=== PATIENT | female | born 1935 | race Caucasian/White ===

== ENCOUNTER 2019-12-17 17:30 | Emergency (ER) | payer MEDICARE, OTHER, MEDICAID ==
--- NOTE | 2019-12-17 17:52 | EDM.PDOC ---
<Malcolm Aguilar - Last Filed: 12/17/19 19:09> ED HPI GENERAL MEDICAL PROBLEM - General Chief Complaint: General Stated Complaint: [facility] Time Seen by Provider: 12/17/19 17:44 - History of Present Illness INITIAL COMMENTS - FREE TEXT/NARRATIVE: 84-year-old female presents the emergency room with weakness and a fall. Patient was at her apartment doing some light weight work and she is felt weak and she fell. She does not recall how she fell or what triggered the fall she just woke up on the ground. The patient does not believe she was down very long. She called her daughter immediately who called 911. Patient does recall have any chest pain chest pressure. She denies any palpitations prior to this. The patient does state that she is just been overly tired and weak the last little bit. She cannot quite quantify how long as this is been going on she has absolutely no pain at this time. - Related Data Allergies Allergy/AdvReac Type Severity Reaction Status Date / Time amoxicillin [Amoxicillin] Allergy Hives Verified 12/17/19 17:47 Sulfa (Sulfonamide Allergy Other Verified 12/17/19 17:47 Antibiotics) Home Meds: Home Meds Clobetasol [Clobetasol Propionate 0.05%] 60 gm TP .PRN 04/09/14 [History] Levothyroxine [Sythroid] 100 mcg PO DAILY 04/09/14 [History] estradioL [Elestrin] 26 gm TD DAILY 04/09/14 [History] hydroCHLOROthiazide [Hydrochlorothiazide] 12.5 mg PO DAILY 04/09/14 [History] Letrozole 2.5 mg PO DAILY 12/17/19 [History] Losartan [Cozaar] 50 mg PO DAILY 12/17/19 [History] Oxybutynin 5 mg PO DAILY 12/17/19 [History] ED ROS GENERAL - Review of Systems Review Of Systems: See Below Constitutional: Reports: Weakness, Fatigue HEENT: Reports: No Symptoms Respiratory: Reports: No Symptoms Cardiovascular: Reports: No Symptoms Endocrine: Reports: No Symptoms GI/Abdominal: Reports: No Symptoms : Reports: No Symptoms Musculoskeletal: Reports: No Symptoms Skin: Reports: No Symptoms Neurological: Reports: Weakness. Denies: No Symptoms, Dizziness Psychiatric: Reports: No Symptoms Hematologic/Lymphatic: Reports: No Symptoms Immunologic: Reports: No Symptoms ED EXAM, GENERAL - Physical Exam Exam: See Below Exam Limited By: No Limitations General Appearance: Alert, No Apparent Distress Eye Exam: Bilateral Eye: Normal Inspection Ears: Normal External Exam, Normal Canal, Hearing Grossly Normal, Normal TMs Nose: Normal Inspection, Normal Mucosa, No Blood Throat/Mouth: Normal Inspection, Normal Lips, Normal Oropharynx, Normal Voice, No Airway Compromise, Other (She wears dentures better lowers are not in place). No: Normal Teeth Head: Atraumatic, Normocephalic Neck: Normal Inspection, Supple, Non-Tender, Full Range of Motion. No: Lymphadenopathy (L), Lymphadenopathy (R) Respiratory/Chest: No Respiratory Distress, Lungs Clear, Normal Breath Sounds Cardiovascular: Regular Rate, Rhythm, No Edema, Systolic Murmur (She has a 2/6 holosystolic murmur heard best along the left lower sternal border radiating aiding left lateral) GI/Abdominal: Normal Bowel Sounds, Soft, Other (She has some vague lower abdominal discomfort) Extremities: Normal Inspection, No Pedal Edema Neurological: Alert, Oriented, Normal Cognition Skin Exam: Warm, Dry, Intact Course - Re-Assessments/Exams Free Text/Narrative Re-Assessment/Exam: 12/17/19 19:09 Troponin is elevated at 0.167 3 times the upper end of normal. At this time is change of shift Dr. Osuna will assume care and disposition. Departure - Departure Disposition: DC/[facility]fer to Acute Hospital [facility] Clinical Impression: Syncope, Elevated troponin, Ventricular tachycardia, UTI (urinary tract infection) - Discharge Information Referrals: Bruon Dumas MD [Primary Care Provider] - Forms: ED Department Discharge <Abdelrahman Osuna - Last Filed: 12/17/19 20:56> ED HPI GENERAL MEDICAL PROBLEM - General Source of Information: Reports: Patient, Family (Gerand-daughter) History Limitations: Reports: No Limitations Past Medical History Cardiovascular History: Reports: High Cholesterol, Hypertension Musculoskeletal History: Reports: Arthritis Oncologic (Cancer) History: Reports: Breast (left, s/p mastectomy) - Past Surgical History HEENT Surgical History: Reports: Oral Surgery (dental extractions), Tonsillectomy Female Surgical History: Reports: Hysterectomy (complete) Oncologic Surgical History: Reports: Mastectomy (left) Social & Family History - Tobacco Use Smoking Status *Q: Never Smoker - Alcohol Use Alcohol Use History: No - Recreational Drug Use Recreational Drug Use: No - Living Situation & Occupation Living situation: Reports: , Alone Occupation: Retired EKG INTERPRETATION EKG Date: 12/17/19 Time: 18:03 Rhythm: NSR Rate (Beats/Min): 82 [place]: Normal P-Wave: Present QRS: Other (LVH) ST-T: Normal QT: Normal Comparison: NA - No Prior EKG Course - Vital Signs Last Recorded V/S: Last Vital Signs Temp 37.1 C 12/17/19 17:44 Pulse 72 12/17/19 20:35 Resp 16 12/17/19 17:44 BP 159/59 H 12/17/19 20:35 Pulse Ox 95 12/17/19 17:44 - Orders/Labs/Meds Orders: Active Orders 24 hr Category Date Time Status EKG Documentation Completion [RC] STAT Care 12/17/19 18:04 Active CULTURE URINE [RM] Stat Lab 12/17/19 18:45 Received Heparin Sodium/D5W [Heparin 25,000 Units in D5W 500 ML] Med 12/17/19 19:45 Active 25,000 units in 500 ml IV TITRATE Magnesium Sulfate/Water [Magnesium Sulfate in Water Med 12/17/19 19:39 Active Premix] 2 gm Premix Bag 1 bag IV ONETIME Medication Orders Magnesium Sulfate 2 gm/ Premix 50 mls @ 25 mls/hr IV ONETIME ONE Stop: 12/17/19 21:38 Last Admin: 12/17/19 19:58 Dose: 25 mls/hr Documented by: TIFFANIE Heparin Sodium/Dextrose (Heparin 25,000 Units In D5w 500 Ml) 25,000 units in 500 mls @ 12.5 mls/hr IV TITRATE TOREY; Protocol Last Admin: 12/17/19 20:02 Dose: 625 units/hr, 12.5 mls/hr Documented by: TIFFANIE Cosigned by: HANNAH Labs: Laboratory Tests 12/17/19 12/17/19 12/17/19 Range/Units 18:20 18:20 18:20 WBC 18.24 H (3.98-10.04) K/mm3 RBC 3.78 L (3.98-5.22) M/mm3 Hgb 11.6 (11.2-15.7) gm/dl Hct 33.6 L (34.1-44.9) % MCV 88.9 (79.4-94.8) fl MCH 30.7 (25.6-32.2) pg MCHC 34.5 (32.2-35.5) g/dl RDW Std Deviation 40.6 (36.4-46.3) fL Plt Count 228 (182-369) K/mm3 MPV 9.2 L (9.4-12.3) fl Neut % (Auto) 89.8 H (34.0-71.1) % Lymph % (Auto) 4.6 L (19.3-51.7) % [place] % (Auto) 5.3 (4.7-12.5) % Eos % (Auto) 0 L (0.7-5.8) Baso % (Auto) 0.1 (0.1-1.2) % Neut # (Auto) 16.38 H (1.56-6.13) K/mm3 Lymph # (Auto) 0.84 L (1.18-3.74) K/mm3 [place] # (Auto) 0.96 H (0.24-0.36) K/mm3 Eos # (Auto) 0.00 L (0.04-0.36) K/mm3 Baso # (Auto) 0.02 (0.01-0.08) K/mm3 Manual Slide Review Abnormal smear D-Dimer, Quantitative (0.19-0.50) mg/L Sodium 125 L (136-145) mEq/L Potassium 4.2 (3.5-5.1) mEq/L Chloride 91 L (98-107) mEq/L Carbon Dioxide 24 (21-32) mEq/L Anion Gap 14.2 (5-15) BUN 17 (7-18) mg/dL Creatinine 0.9 (0.55-1.02) mg/dL Est Cr Clr Drug Dosing 38.32 mL/min Estimated GFR (MDRD) 60 (>60) mL/min BUN/Creatinine Ratio 18.9 H (14-18) Glucose 126 H (83-115) mg/dL Calcium 8.5 (8.5-10.1) mg/dL Magnesium 1.7 L (1.8-2.4) mg/dl Total Bilirubin 0.6 (0.2-1.0) mg/dL AST 27 (15-37) U/L ALT 24 (14-59) U/L Alkaline Phosphatase 44 L (46-116) U/L Troponin I 0.167 H* (0.00-0.056) ng/mL Total Protein 6.6 (6.4-8.2) g/dl Albumin 3.6 (3.4-5.0) g/dl Globulin 3.0 gm/dL Albumin/Globulin Ratio 1.2 (1-2) TSH 3rd Generation 0.458 (0.358-3.74) uIU/mL Urine Color (Yellow) Urine Appearance (Clear) Urine pH (5.0-8.0) Ur Specific [place] (1.005-1.030) Urine Protein (Negative) Urine Glucose (UA) (Negative) Urine Ketones (Negative) Urine Occult Blood (Negative) Urine Nitrite (Negative) Urine Bilirubin (Negative) Urine Urobilinogen (0.2-1.0) Ur Leukocyte Esterase (Negative) Urine RBC (0-5) /hpf Urine WBC (0-5) /hpf Ur Squamous Epith Cells (0-5) /hpf Urine Bacteria (FEW) /hpf Urine Mucus (FEW) /hpf 12/17/19 12/17/19 Range/Units 18:20 18:45 WBC (3.98-10.04) K/mm3 RBC (3.98-5.22) M/mm3 Hgb (11.2-15.7) gm/dl Hct (34.1-44.9) % MCV (79.4-94.8) fl MCH (25.6-32.2) pg MCHC (32.2-35.5) g/dl RDW Std Deviation (36.4-46.3) fL Plt Count (182-369) K/mm3 MPV (9.4-12.3) fl Neut % (Auto) (34.0-71.1) % Lymph % (Auto) (19.3-51.7) % [place] % (Auto) (4.7-12.5) % Eos % (Auto) (0.7-5.8) Baso % (Auto) (0.1-1.2) % Neut # (Auto) (1.56-6.13) K/mm3 Lymph # (Auto) (1.18-3.74) K/mm3 [place] # (Auto) (0.24-0.36) K/mm3 Eos # (Auto) (0.04-0.36) K/mm3 Baso # (Auto) (0.01-0.08) K/mm3 Manual Slide Review D-Dimer, Quantitative 6.76 H (0.19-0.50) mg/L Sodium (136-145) mEq/L Potassium (3.5-5.1) mEq/L Chloride (98-107) mEq/L Carbon Dioxide (21-32) mEq/L Anion Gap (5-15) BUN (7-18) mg/dL Creatinine (0.55-1.02) mg/dL Est Cr Clr Drug Dosing mL/min Estimated GFR (MDRD) (>60) mL/min BUN/Creatinine Ratio (14-18) Glucose (83-115) mg/dL Calcium (8.5-10.1) mg/dL Magnesium (1.8-2.4) mg/dl Total Bilirubin (0.2-1.0) mg/dL AST (15-37) U/L ALT (14-59) U/L Alkaline Phosphatase (46-116) U/L Troponin I (0.00-0.056) ng/mL Total Protein (6.4-8.2) g/dl Albumin (3.4-5.0) g/dl Globulin gm/dL Albumin/Globulin Ratio (1-2) TSH 3rd Generation (0.358-3.74) uIU/mL Urine Color Light yellow (Yellow) Urine Appearance Cloudy H (Clear) Urine pH 7.0 (5.0-8.0) Ur Specific [place] 1.020 (1.005-1.030) Urine Protein Trace H (Negative) Urine Glucose (UA) Negative (Negative) Urine Ketones Negative (Negative) Urine Occult Blood 1+ H (Negative) Urine Nitrite Positive H (Negative) Urine Bilirubin Negative (Negative) Urine Urobilinogen 0.2 (0.2-1.0) Ur Leukocyte Esterase 3+ H (Negative) Urine RBC 5-10 H (0-5) /hpf Urine WBC 40-50 H (0-5) /hpf Ur Squamous Epith Cells 0-5 (0-5) /hpf Urine Bacteria Many H (FEW) /hpf Urine Mucus Not seen (FEW) /hpf Meds: Medications Generic Name Dose Route Start Last Admin Trade Name Freq PRN Reason Stop Dose Admin Magnesium Sulfate 2 gm/ Premix 50 mls @ 25 mls/hr 12/17/19 19:39 12/17/19 19:58 IV 12/17/19 21:38 25 mls/hr ONETIME ONE Administration Heparin Sodium/Dextrose 25,000 units in 500 mls @ 12.5 mls/hr 12/17/19 19:45 12/17/19 20:02 Heparin 25,000 Units In D5w 500 Ml IV 625 units/hr TITRATE TOREY 12.5 mls/hr Administration Protocol 625 UNITS/HR Discontinued Medications Generic Name Dose Route Start Last Admin Trade Name Freq PRN Reason Stop Dose Admin Aspirin 324 mg 12/17/19 19:42 12/17/19 19:55 Aspirin PO 12/17/19 19:43 324 mg ONETIME STA Administration Heparin Sodium (Porcine) 3,130 units 12/17/19 19:42 12/17/19 19:56 Heparin Sodium IVPUSH 12/17/19 19:43 3,130 units .BOLUS ONE Administration Metoprolol Tartrate 5 mg 12/17/19 19:45 12/17/19 20:05 Lopressor IVPUSH 12/17/19 19:46 5 mg ONETIME ONE Administration Metoprolol Tartrate 5 mg 12/17/19 20:27 12/17/19 20:35 Lopressor IVPUSH 12/17/19 20:28 5 mg ONETIME ONE Administration Nitrofurantoin Macrocrystals 100 mg 12/17/19 19:27 12/17/19 19:37 Macrobid PO 12/17/19 19:28 100 mg ONETIME STA Administration Oral Electrolytes 1 each 12/17/19 20:00 12/17/19 20:19 Thermotabs PO 12/17/19 20:01 1 each ONETIME STA Administration - Re-Assessments/Exams Free Text/Narrative Re-Assessment/Exam: 12/17/19 19:[address] Aguilar. I have interviewed and examined the patient. Portable chest radiograph reviewed. The cardiac silhouette is within normal limits. No pulmonary vascular congestion. No pleural effusions. No focal infiltrate. No pneumothorax. There is hyperinflation and bilateral diaphragmatic flattening, consistent with emphysema. Formal read per the Radiologist pending. CT of the head without contrast is read by Dr. Salamanca as: 1. Senescent change as described above. 2. Nothing acute is appreciated on noncontrast head CT exam. The patient's CBC is remarkable for a WBC count elevated at 18.24, but with rare bands. Her Hct is mildly depressed at 33.6, but with a Hgb normal at 11.6, with the remainder of her CBC being unremarkable. Her CMP is remarkable for a sodium depressed at 125, with a chloride of 91. Her blood glucose is mildly elevated at 126, with the remainder of her CMP being unremarkable. Her magnesium level is slightly depressed at 1.7. Her troponin is elevated at 0.167. Her TSH is within normal limits at 0.458. Her urinalysis is remarkable for cloudy appearance, 1+ occult blood with 5-10 R BCs, 3+ leukocyte esterase with 40-50 WBCs, nitrite positive with many bacteria, and 0-5 squamous epithelial cells. Based on the above, the patient appears to have a urinary tract infection. A urine culture has been ordered, and I will start the patient on oral nitrofurantoin. Additionally, while the patient's ECG shows no dysrhythmias, I have been notified of a 6-beat run of ventricular tachycardia caught on the patient's proofer prepress. Combined with the patient's elevated troponin, I suspect that her syncopal episode may be cardiac in etiology. I will order a 2 g Mg- rider, 324 mg of aspirin, 5 mg of IV Lopressor, and a heparin bolus/drip. The patient will need to be transferred to [place]. 12/17/19 19:52 Test results and my plan for transfer to [place] discussed with the patient and her granddaughter. The patient prefers [facility]. 12/17/19 19:55 Case discussed with Ministerio at [facility] at 19:54. She needs to check with her residential case manager to see about bed availability, then will call us back. 12/17/19 19:59 I have pushed the portable chest x-ray and CT/head images to [facility]. 12/17/19 20:01 To treat the patient's hyponatremia, I have ordered a single Thermotab salt supplement. 12/17/19 20:21 Called back by Ministerio at [facility] at 20:03. Case then discussed with Dr. Hall, Hospitalist at [facility], at 20:1 7. He suggested that we check a D-dimer, but accepted the patient for transfer to their facility. The patient will be transported by ground ambulance. I have added a D-dimer, with the plan to notify Dr. Hall if it is elevated, but in the meantime, the patient will be transferred. As above, she is already on a heparin drip. 12/17/19 20:27 I have ordered a second Lopressor 5 mg IVP. 12/17/19 20:54 Notified that the patient's D-dimer is significantly elevated at 6.76. 12/17/19 20:55 Notified Ministerio at [facility] of the elevated D-dimer, at 20:55. She will notify Dr. Hall. Departure - Departure Time of Disposition: 20:24 Condition: Good Sepsis Event Note (ED) - Focused Exam Vital Signs: Vital Signs Temp Pulse Pulse Resp BP BP Pulse Ox 12/17/19 20:35 72 159/59 H 12/17/19 20:05 85 145/50 H 12/17/19 17:44 37.1 C 86 16 151/51 H 95 - My Orders Last 24 Hours: My Active Orders 12/17/19 19:39 Magnesium Sulfate/Water [Magnesium Sulfate in Water Premix] 2 gm Premix Bag 1 bag IV ONETIME 12/17/19 19:45 Heparin Sodium/D5W [Heparin 25,000 Units in D5W 500 ML] 25,000 units in 500 ml IV TITRATE - Assessment/Plan Last 24 Hours: My Active Orders 12/17/19 19:39 Magnesium Sulfate/Water [Magnesium Sulfate in Water Premix] 2 gm Premix Bag 1 bag IV ONETIME 12/17/19 19:45 Heparin Sodium/D5W [Heparin 25,000 Units in D5W 500 ML] 25,000 units in 500 ml IV TITRATE
--- NOTE | 2019-12-17 18:56 | CT ---
Head CT Technique: Multiple axial sections through the brain were obtained. Intravenous contrast was not utilized. Comparison: No prior intracranial imaging is available. Findings: Ventricles along with basal cisterns and sulci over the convexities are mildly prominent. Diminished density is noted within portions of the periventricular and subcortical white matter compatible with small vessel ischemic demyelination change. Several old lacunar infarcts are noted within the basal ganglia. No evidence of intracranial hemorrhage. No midline shift or mass-effect is seen. Bone window settings were reviewed. No acute calvarial finding is seen. Visualized paranasal sinuses and mastoid sinuses show nothing acute. Mild atherosclerotic calcification is seen within the vertebral vessels and carotid siphon. Impression: 1. Senescent change as described above. 2. Nothing acute is appreciated on noncontrast head CT exam. Diagnostic code #2 This report was dictated in MDT
[2019-12-17] MEDS ORDERED: Nitrofurantoin Monohydrate/Macrocrystalline 100 MG Cap PO STA (19:27)
--- NOTE | 2019-12-17 19:35 | CR ---
Chest: Portable view of the chest was obtained. Comparison: No prior chest imaging is available. Heart size and mediastinum are within normal limits for portable technique. Axillary lymph node dissection is noted as noted on the left side. Lungs show no acute parenchymal change. Mild scoliosis is noted within the spine. No acute osseous finding is appreciated. Impression: 1. Findings as noted above. 2. Nothing acute is appreciated on portable chest x-ray. Diagnostic code #2 This report was dictated in MDT
[2019-12-17] MEDS ORDERED: Magnesium Sulfate/Water 2 GM in Premix Bag 1 BAG IV ONE (19:39)
[2019-12-17] MEDS ORDERED: Aspirin 81 MG Tab.Chew PO STA (19:42)
[2019-12-17] MEDS ORDERED: Heparin Sodium 5,000 Units/ML Vial IVPUSH ONE (19:42)
[2019-12-17] MEDS ORDERED: Metoprolol Tartrate 5 MG/5 ML SDV IVPUSH ONE ×2 (19:45→20:27)
[2019-12-17] MEDS ORDERED: Heparin Sodium/D5W 25,000 UNITS/500 ML BAG IV SCH (19:45)
[2019-12-17] MEDS ORDERED: Sodium Chloride/Potassium Chloride Tab PO STA (20:00)
== END 2019-12-17 21:00 ==
LOC: JD.ED 17:30
DX: R55 Syncope and collapse (principal); R79.89 Other specified abnormal findings of blood chemistry; N39.0 Urinary tract infection, site not specified; I47.2 Ventricular tachycardia; I10 Essential (primary) hypertension; Z88.1 Allergy status to other antibiotic agents; Z88.2 Allergy status to sulfonamides; Z79.899 Other long term (current) drug therapy; Z90.710 Acquired absence of both cervix and uterus
CPT/HCPCS: 36415; 70450; 71045; 80053; 81001; 83735; 84443; 84484; 85025; 85379; 87086; 87088; 87186; 93005; 96365; 96368; 96375; 96376; 99285; A9270; J1644; J3475; J3490

== ENCOUNTER 2020-03-12 15:55 | Emergency (ER) | payer MEDICARE, OTHER, MEDICAID ==
--- NOTE | 2020-03-12 16:24 | EDM.PDOC ---
ED HPI GENERAL MEDICAL PROBLEM - General Chief Complaint: General Stated Complaint: [facility] Time Seen by Provider: 03/12/20 16:04 Source of Information: Reports: Patient History Limitations: Reports: No Limitations - History of Present Illness INITIAL COMMENTS - FREE TEXT/NARRATIVE: Patient is an 84 year old female presenting to the ER with for evaulation after sustaining a fall at home. Patient states that she was standing in the kitchen and "her cane didn't work right". She states that she fell backward, landing on her back. She does not think that she hit her head and denies LOC. She has no pain to any part of her body. She states that she initially stood with the assistance of EMS, she felt dizzy but she no longer feels dizzy. She states that she feels tired. Denies headache, dizziness, vision changes, or pain. She denies being on blood thinners. - Related Data Allergies Allergy/AdvReac Type Severity Reaction Status Date / Time amoxicillin [Amoxicillin] Allergy Hives Verified 03/12/20 16:03 Sulfa (Sulfonamide Allergy Other Verified 03/12/20 16:03 Antibiotics) Home Meds: Home Meds Levothyroxine [Sythroid] 100 mcg PO DAILY 04/09/14 [History] Letrozole 2.5 mg PO DAILY 12/17/19 [History] Losartan [Cozaar] 50 mg PO DAILY 12/17/19 [History] Oxybutynin 5 mg PO BID 12/17/19 [History] atorvaSTATin [Lipitor] 20 mg PO DAILY 03/12/20 [History] Past Medical History Cardiovascular History: Reports: High Cholesterol, Hypertension Musculoskeletal History: Reports: Arthritis Oncologic (Cancer) History: Reports: Breast - Past Surgical History HEENT Surgical History: Reports: Oral Surgery, Tonsillectomy Female Surgical History: Reports: Hysterectomy Oncologic Surgical History: Reports: Mastectomy Social & Family History - Tobacco Use Smoking Status *Q: Never Smoker Second Hand Smoke Exposure: No - Caffeine Use Caffeine Use: Reports: None - Recreational Drug Use Recreational Drug Use: No - Living Situation & Occupation Living situation: Reports: , Alone Occupation: Retired ED ROS GENERAL - Review of Systems Review Of Systems: See Below Constitutional: Reports: Fatigue. Denies: Fever, Chills, Weakness HEENT: Reports: No Symptoms. Denies: Vertigo, Vision Change Respiratory: Reports: No Symptoms. Denies: Shortness of Breath, Cough Cardiovascular: Reports: No Symptoms. Denies: Chest Pain, Dyspnea on Exertion, Palpitations, Syncope Endocrine: Reports: No Symptoms GI/Abdominal: Reports: No Symptoms. Denies: Abdominal Pain, Diarrhea, Nausea, Vomiting : Reports: No Symptoms. Denies: Dysuria, Flank Pain, Frequency Musculoskeletal: Reports: No Symptoms. Denies: Neck Pain, Back Pain, Joint Pain Skin: Reports: No Symptoms. Denies: Bruising Neurological: Reports: Dizziness (transient upon standing after the fall). Denies: Confusion, Headache, Paresthesia, Syncope, Trouble Speaking, Change in Speech Psychiatric: Reports: No Symptoms Hematologic/Lymphatic: Reports: No Symptoms Immunologic: Reports: No Symptoms ED EXAM, GENERAL - Physical Exam Exam: See Below Exam Limited By: No Limitations General Appearance: Alert, WD/WN, No Apparent Distress Eye Exam: Bilateral Eye: PERRL Head: Atraumatic, Normocephalic Neck: Normal Inspection, Supple, Non-Tender, Full Range of Motion. No: Tender Lateral, Tender Midline Respiratory/Chest: No Respiratory Distress, Lungs Clear, Normal Breath Sounds, No Accessory Muscle Use, Chest Non-Tender Cardiovascular: Normal Peripheral Pulses, Regular Rate, Rhythm, No Edema, No Gallop, No JVD, No Murmur, No Rub GI/Abdominal: Normal Bowel Sounds, Soft, Non-Tender, No Organomegaly, No Distention, No Abnormal Bruit, No Mass Back Exam: Normal Inspection, Full Range of Motion. No: Paraspinal Tenderness, Vertebral Tenderness Neurological: Alert, Oriented, CN II-XII Intact, Normal Cognition, Normal Gait, Normal Reflexes, No Motor/Sensory Deficits Psychiatric: Normal Affect, Normal Mood Skin Exam: Warm, Dry, Intact, Normal Color, No Rash EKG INTERPRETATION EKG Date: 03/12/20 Time: 16:30 Rhythm: NSR Rate (Beats/Min): 80 [place]: Normal P-Wave: Present QRS: Normal ST-T: Normal QT: Normal EKG Interpretation Comments: Sinus rhythm at 80 bpm Severe left ventricular hypertrophy pattern Peaked, symmetrical T waves-consider hyperkalemia Consider left atrial hypertrophy EKG interpreted by Dr. Virginia HUGHES. Course - Vital Signs Last Recorded V/S: Last Vital Signs Temp 98 F 03/12/20 16:00 Pulse 80 03/12/20 18:10 Resp 14 03/12/20 18:10 BP 161/87 H 03/12/20 18:10 Pulse Ox 96 03/12/20 18:10 Orthostatic Blood Pressure [ 191/77 Sitting] Orthostatic Blood Pressure [ 187/71 Supine] - Orders/Labs/Meds Orders: Active Orders 24 hr Category Date Time Status EKG Documentation Completion [RC] STAT Care 03/12/20 16:17 Active Insert Santana Catheter [Insert Urinary Catheter] [OM.PC] Care 03/12/20 17:30 Ordered Q24H Orthostatic Vital Signs [RC] ASDIRECTED Care 03/12/20 16:18 Active Urinary Catheter Assessment [RC] ASDIRECTED Care 03/12/20 17:26 Active Chest 2V [CR] Stat Exams 03/12/20 16:17 Taken Head wo Cont [CT] Stat Exams 03/12/20 16:16 Taken Labs: Laboratory Tests 03/12/20 03/12/20 03/12/20 Range/Units 16:33 16:33 17:12 WBC 9.18 (3.98-10.04) K/mm3 RBC 3.83 L (3.98-5.22) M/mm3 Hgb 11.9 (11.2-15.7) gm/dl Hct 35.6 (34.1-44.9) % MCV 93.0 D (79.4-94.8) fl MCH 31.1 (25.6-32.2) pg MCHC 33.4 (32.2-35.5) g/dl RDW Std Deviation 41.9 (36.4-46.3) fL Plt Count 187 (182-369) K/mm3 MPV 10.0 (9.4-12.3) fl Neut % (Auto) 84.6 H (34.0-71.1) % Lymph % (Auto) 8.3 L (19.3-51.7) % [place] % (Auto) 6.4 (4.7-12.5) % Eos % (Auto) 0.5 L (0.7-5.8) Baso % (Auto) 0.1 (0.1-1.2) % Neut # (Auto) 7.76 H (1.56-6.13) K/mm3 Lymph # (Auto) 0.76 L (1.18-3.74) K/mm3 [place] # (Auto) 0.59 H (0.24-0.36) K/mm3 Eos # (Auto) 0.05 (0.04-0.36) K/mm3 Baso # (Auto) 0.01 (0.01-0.08) K/mm3 Manual Slide Review Abnormal smear Sodium 130 L (136-145) mEq/L Potassium 4.7 (3.5-5.1) mEq/L Chloride 96 L (98-107) mEq/L Carbon Dioxide 27 (21-32) mEq/L Anion Gap 11.7 (5-15) BUN 19 H (7-18) mg/dL Creatinine 1.0 (0.55-1.02) mg/dL Est Cr Clr Drug Dosing 29.99 mL/min Estimated GFR (MDRD) 53 (>60) mL/min BUN/Creatinine Ratio 19.0 H (14-18) Glucose 114 (83-115) mg/dL Calcium 8.8 (8.5-10.1) mg/dL Total Bilirubin 0.5 (0.2-1.0) mg/dL AST 24 (15-37) U/L ALT 20 (14-59) U/L Alkaline Phosphatase 40 L (46-116) U/L Troponin I 0.028 (0.00-0.056) ng/mL C-Reactive Protein 0.3 (<1.0) mg/dL Total Protein 6.7 (6.4-8.2) g/dl Albumin 3.7 (3.4-5.0) g/dl Globulin 3.0 gm/dL Albumin/Globulin Ratio 1.2 (1-2) Urine Color Yellow (Yellow) Urine Appearance Clear (Clear) Urine pH 7.5 (5.0-8.0) Ur Specific [place] 1.020 (1.005-1.030) Urine Protein Negative (Negative) Urine Glucose (UA) Negative (Negative) Urine Ketones 1+ H (Negative) Urine Occult Blood Trace-intact H (Negative) Urine Nitrite Negative (Negative) Urine Bilirubin Negative (Negative) Urine Urobilinogen 0.2 (0.2-1.0) Ur Leukocyte Esterase Negative (Negative) Urine RBC 0-5 (0-5) /hpf Urine WBC 0-5 (0-5) /hpf Ur Squamous Epith Cells 0-5 (0-5) /hpf Urine Bacteria Few (FEW) /hpf Urine Mucus Not seen (FEW) /hpf - Re-Assessments/Exams Free Text/Narrative Re-Assessment/Exam: Patient is an 84-year-old female presenting to the emergency department via [facility] for evaluation after falling at home. She states she was standing in her kitchen and her "cane did not work". She describes falling backward, but denies hitting her head. She denies loss of consciousness. She states when she was initially assisted to a standing position by EMS, she felt dizzy, however that has since passed. She denies feeling dizzy at this time. Has no headache or vision changes. Her exam was grossly unremarkable. Grasps are equal bilaterally. Leg strength equal bilaterally. She denies back pain and has no vertebral tenderness upon palpation of the spine or neck. She has full range of motion with no tenderness to her bilateral hips. There is no palpable hematomas or areas of tenderness to the skull. Lung sounds are clear. I have ordered a CBC, CMP, CRP, troponin, urinalysis, orthostatic blood pressures, head CT, and a two-view chest x-ray. 03/12/20 17:45 Hematology was significant for sodium low at 130, chloride low at 96, BUN 19. Troponin was negative. Urinalysis was negative for infection. Head CT showed no acute intracranial abnormalities. Chest x-ray showed no acute abnormalities. Patient states that she is feeling well, but is . We will have the nurses have her get up and walk and see how she does with the intent of discharging home. 03/12/20 17:51 Patient was able to ambulate without difficulty of the use of a front wheel walker. Patient states that she feels like she is doing well. She does have a cane and a walker at home that she may use as needed. I have ordered a state send out coronavirus test. We will discharge her home. Discharge instructions as documented. 03/12/20 18:16 Updated pts [id number] Adali. She will come to pick the patient up. Discussed than she should decrease the amount of plain water she is drinking and increase fluids with electrolytes. Discussed this with the patient as well. Both verbalizes understanding. Departure - Departure Time of Disposition: 18:03 Disposition: Home, Self-Care 01 Condition: Good Clinical Impression: Hyponatremia Fall Qualifiers: Encounter type: initial encounter Qualified Code(s): W19.XXXA - Unspecified fall, initial encounter - Discharge Information *PRESCRIPTION DRUG MONITORING PROGRAM REVIEWED*: No *COPY OF PRESCRIPTION DRUG MONITORING REPORT IN PATIENT RYAN: No Referrals: Bruno Dumas MD [Primary Care Provider] - Forms: ED Department Discharge Additional Instructions: You were seen in the emergency department today for evaluation after a fall at home. Your work-up included blood work, urinalysis, and EKG of your heart, chest x-ray, and a CT scan of your head. Overall your work-up was found to be normal, with the exception of your sodium being mildly low. Recommend that you increase your intake of electrolytes including Gatorade or Powerade, and decrease your intake of straight water. Use your walker or cane at home as needed for assistance walking. A coronavirus test has been completed today. You will be notified when these results are available. If you should experience any new or worsening symptoms of concern, please not hesitate to return to the emergency department. Sepsis Event Note (ED) - Evaluation Sepsis Screening Result: No Definite Risk - Focused Exam Vital Signs: Vital Signs Temp Pulse Resp BP Pulse Ox 03/12/20 18:10 80 14 161/87 H 96 03/12/20 17:30 84 16 168/59 H 95 03/12/20 16:00 98 F 88 16 184/70 H 94 L - My Orders Last 24 Hours: My Active Orders 03/12/20 16:16 Head wo Cont [CT] Stat 03/12/20 16:17 EKG Documentation Completion [RC] STAT Chest 2V [CR] Stat 03/12/20 16:18 Orthostatic Vital Signs [RC] ASDIRECTED 03/12/20 17:26 Urinary Catheter Assessment [RC] ASDIRECTED 03/12/20 17:30 Insert Santana Catheter [Insert Urinary Catheter] [OM.PC] Q24H - Assessment/Plan Last 24 Hours: My Active Orders 03/12/20 16:16 Head wo Cont [CT] Stat 03/12/20 16:17 EKG Documentation Completion [RC] STAT Chest 2V [CR] Stat 03/12/20 16:18 Orthostatic Vital Signs [RC] ASDIRECTED 03/12/20 17:26 Urinary Catheter Assessment [RC] ASDIRECTED 03/12/20 17:30 Insert Santana Catheter [Insert Urinary Catheter] [OM.PC] Q24H
--- NOTE | 2020-03-13 11:25 | CR ---
Chest: 2 views of the chest were obtained. Comparison: Prior chest x-ray of 12/17/19. Heart size and mediastinum are within normal limits for the patient's age. Surgical clips seen within left axillary region. Small nodule is noted within the left upper chest most likely representing granuloma. Lungs show no acute parenchymal change. Slight degenerative change is scattered within the spine with scoliosis. Impression: 1. Findings as noted above. 2. Nothing acute is seen. Diagnostic code #2 Study was dictated in MDT
--- NOTE | 2020-03-13 11:25 | CT ---
Head CT Technique: Multiple axial sections through the brain were obtained. Intravenous contrast was not utilized. Comparison: Prior head CT study of 12/17/19. Findings: Ventricles along with basal cisterns and sulci over the convexities are mildly prominent. Diminished density is noted within the periventricular and subcortical white matter compatible with small vessel ischemic demyelination change. Several old lacunar infarcts are noted within the basal ganglia. Small calcified meningioma believed to be present within the right frontal lobe. No acute hemorrhage is seen. No midline shift or mass effect is seen. Visualized mastoid sinuses and visualized paranasal sinuses show nothing acute. Small skull lesion is seen within the left posterior parietal region which is stable. No acute calvarial abnormality is appreciated. Impression: 1. Senescent change as described above. 2. Nothing acute is seen on noncontrast head CT study. 3. No change from previous head CT study is seen. Diagnostic code #2 I agree with preliminary report issued by [facility] ([facility] preliminary report dictated on 03/12/20, 6:06 PM Central Daylight Time) Study was dictated in MDT
== END 2020-03-12 18:20 | disposition home or self-care (01) ==
LOC: JD.ED 15:55
DX: Z04.3 Encounter for examination and observation following other accident (principal); E87.1 Hypo-osmolality and hyponatremia; I10 Essential (primary) hypertension; E78.00 Pure hypercholesterolemia, unspecified; Z90.710 Acquired absence of both cervix and uterus; Z88.1 Allergy status to other antibiotic agents; Z88.2 Allergy status to sulfonamides; Z79.899 Other long term (current) drug therapy; Z20.828 Contact with and (suspected) exposure to other viral communicable diseases; W18.30XA Fall on same level, unspecified, initial encounter; Y92.000 Kitchen of unspecified non-institutional (private) residence as the place of occurrence of the external cause
CPT/HCPCS: 36415; 70450; 71046; 80053; 81001; 84484; 85025; 86140; 93005; 99285; U0002; 51701; 93010; 99283

== ENCOUNTER 2022-08-01 18:58 | Inpatient (IN) | payer MEDICARE, OTHER, MEDICAID ==
[2022-08-01] MEDS ORDERED: Sodium Chloride 0.9% 10 ML Syringe FLUSH PRN (19:06)
[2022-08-01 20:08] LABS: ESTIMATED GFR 55 mL/min (>60)
[2022-08-01 20:21] LABS: CORONAVIRUS COVID-19 NAA NEGATIVE (NEGATIVE)
[2022-08-01] MEDS ORDERED: Ondansetron 4 MG/2 ML SDV IVPUSH ONE (22:29)
[2022-08-01] MEDS ORDERED: Iopamidol 755 Mg/ML 100 ML Bottle IVPUSH ONE (23:37)
[2022-08-02] MEDS ORDERED: Ondansetron 4 MG/2 ML SDV IVPUSH PRN (02:56)
[2022-08-02] MEDS: Sodium Chloride 0.9% 1,000 ML IV SCH ×2 (03:31→15:46)
[2022-08-02] MEDS: Losartan 50 MG Tab PO SCH (09:38)
[2022-08-02] MEDS: atorvaSTATin 20 MG Tab PO SCH (09:41)
[2022-08-02] MEDS: Oxybutynin 5 MG Tab PO SCH ×2 (09:41→21:49)
[2022-08-02] MEDS ORDERED: Magnesium Sulfate/Water 4 GM in Premix Bag 1 BAG IV ONE ×2 (09:43→13:30)
[2022-08-02] MEDS ORDERED: hydrALAZINE 10 MG Tab PO PRN (09:47)
[2022-08-02] MEDS: Levothyroxine 100 MCG Tab PO SCH (09:51)
[2022-08-02] MEDS: LETROZOLE 2.5 MG PO SCH (09:58)
[2022-08-02] MEDS ORDERED: Gadobenate Dimeglumine 529 MG/ML 15 ML SDV IVPUSH ONE (12:39)
[2022-08-02] MEDS ORDERED: Sodium Chloride 0.9% 10 ML Syringe FLUSH SCH (12:45)
[2022-08-03] MEDS: Sodium Chloride 0.9% 1,000 ML IV SCH ×3 (02:33→23:35)
[2022-08-03 07:39] LABS: HEMOGLOBIN A1C 6.2 %
[2022-08-03] MEDS ORDERED: Enoxaparin 40 MG/0.4 ML Syringe SUBCUT SCH ×2 (08:30→09:00)
[2022-08-03] MEDS: atorvaSTATin 20 MG Tab PO SCH (09:58)
[2022-08-03] MEDS: Losartan 50 MG Tab PO SCH (09:58)
[2022-08-03] MEDS: Oxybutynin 5 MG Tab PO SCH ×2 (09:58→20:59)
[2022-08-03] MEDS: Aspirin 325 MG Tab.EC PO SCH (09:58)
[2022-08-03] MEDS: LETROZOLE 2.5 MG PO SCH (09:59)
[2022-08-03] MEDS: Levothyroxine 100 MCG Tab PO SCH (10:48)
[2022-08-03] MEDS: Enoxaparin 60 MG/0.6 ML Syringe SUBCUT SCH ×2 (12:33→23:36)
[2022-08-04] MEDS: atorvaSTATin 20 MG Tab PO SCH (10:11)
[2022-08-04] MEDS: Oxybutynin 5 MG Tab PO SCH ×2 (10:11→21:27)
[2022-08-04] MEDS: Aspirin 325 MG Tab.EC PO SCH (10:11)
[2022-08-04] MEDS: Losartan 50 MG Tab PO SCH (10:11)
[2022-08-04] MEDS: Levothyroxine 100 MCG Tab PO SCH (10:12)
[2022-08-04] MEDS: LETROZOLE 2.5 MG PO SCH (10:13)
[2022-08-04] MEDS: Enoxaparin 60 MG/0.6 ML Syringe SUBCUT SCH ×3 (12:40→21:56)
[2022-08-05] MEDS: Losartan 50 MG Tab PO SCH (08:56)
[2022-08-05] MEDS: Aspirin 325 MG Tab.EC PO SCH (08:56)
[2022-08-05] MEDS: Oxybutynin 5 MG Tab PO SCH ×2 (08:57→20:32)
[2022-08-05] MEDS: Levothyroxine 100 MCG Tab PO SCH (08:57)
[2022-08-05] MEDS: atorvaSTATin 20 MG Tab PO SCH (08:57)
[2022-08-05] MEDS: Enoxaparin 60 MG/0.6 ML Syringe SUBCUT SCH ×2 (09:00→21:20)
[2022-08-05] MEDS: LETROZOLE 2.5 MG PO SCH (09:03)
[2022-08-06] MEDS: atorvaSTATin 20 MG Tab PO SCH (08:45)
[2022-08-06] MEDS: Losartan 50 MG Tab PO SCH (08:48)
[2022-08-06] MEDS: Aspirin 325 MG Tab.EC PO SCH (08:48)
[2022-08-06] MEDS: Levothyroxine 100 MCG Tab PO SCH (08:49)
== END 2022-08-06 14:12 | disposition home or self-care (01) | DRG 69 ==
LOC: JD.ED 18:58 → JD.MS 08-02 01:50 → JD.OB 08-05 14:07 → JD.MS 08-06 14:06 → UNDODISIN 08-06 14:12
PROVIDERS: ADMIT Internal Medicine Cardiovascular Disease; ATTEND Internal Medicine Cardiovascular Disease
DX: R41.82 Altered mental status, unspecified (principal); G81.91 Hemiplegia, unspecified affecting right dominant side; G45.9 Transient cerebral ischemic attack, unspecified; R40.4 Transient alteration of awareness; I48.91 Unspecified atrial fibrillation; H91.90 Unspecified hearing loss, unspecified ear; W19.XXXA Unspecified fall, initial encounter; H54.7 Unspecified visual loss; E78.00 Pure hypercholesterolemia, unspecified; Z66 Do not resuscitate; I10 Essential (primary) hypertension; Z20.822 Contact with and (suspected) exposure to COVID-19; E03.9 Hypothyroidism, unspecified; M19.90 Unspecified osteoarthritis, unspecified site; E78.5 Hyperlipidemia, unspecified; J06.9 Acute upper respiratory infection, unspecified; Z88.0 Allergy status to penicillin; Z88.2 Allergy status to sulfonamides; Z79.890 Hormone replacement therapy; Z90.710 Acquired absence of both cervix and uterus; Z79.899 Other long term (current) drug therapy; Z85.3 Personal history of malignant neoplasm of breast
CPT/HCPCS: 0241U; 36415; 70450; 70553; 71045; 71275; 72125; 80048; 80053; 80061; 81001; 83036; 83605; 83735; 83880; 84443; 84484; 85007; 85025; 85027; 85379; 85610; 85730; 86140; 86738; 87040; 93005; 93306; 96374; 97110; 97116; 97162; 97166; 97530; 97535; 99285; 93010; 99221; 99232; 99239; A9270-GY; A9577; J1650; J2405; J3475; J3490; J7030; Q9967

== ENCOUNTER 2022-10-30 01:12 | Emergency (ER) | payer MEDICARE, OTHER, MEDICAID | END 2022-10-30 03:26 | disposition home or self-care (01) | LOC: JD.ED 01:12 | DX: R04.0 Epistaxis (principal); E78.00 Pure hypercholesterolemia, unspecified; I10 Essential (primary) hypertension; E03.9 Hypothyroidism, unspecified; M19.90 Unspecified osteoarthritis, unspecified site; Z88.0 Allergy status to penicillin; Z88.2 Allergy status to sulfonamides; Z79.82 Long term (current) use of aspirin; Z79.899 Other long term (current) drug therapy | CPT/HCPCS: 30901; 30903; 99282; 99283 ==

== ENCOUNTER 2022-10-30 16:03 | Emergency (ER) | payer MEDICARE, OTHER, MEDICAID | END 2022-10-30 17:45 | disposition home or self-care (01) | LOC: JD.ED 16:03 | DX: R04.0 Epistaxis (principal); I10 Essential (primary) hypertension; E78.00 Pure hypercholesterolemia, unspecified; M19.90 Unspecified osteoarthritis, unspecified site; E03.9 Hypothyroidism, unspecified; Z79.82 Long term (current) use of aspirin; Z79.899 Other long term (current) drug therapy; Z88.0 Allergy status to penicillin; Z88.2 Allergy status to sulfonamides | CPT/HCPCS: 30903; 99283-25 ==

== ENCOUNTER 2023-03-17 20:55 | Emergency (ER) | payer MEDICARE, OTHER, MEDICAID ==
[2023-03-17 21:38] LABS: BASOPHILS ABSOLUTE AUTO 0.1 K/mm3 (0.0-0.2); BASOPHILS PERCENT AUTO 0.8 % (0.0-1.0); EOSINOPHILS ABSOLUTE AUTO 0.2 K/mm3 (0.0-0.4); EOSINOPHILS PERCENT AUTO 2.5 % (0.0-6.0); HEMATOCRIT 37.7 % (37.0-47.0); HEMOGLOBIN 12.6 gm/dl (12.0-16.0); IMMATURE GRAN ABSOLUTE AUTO 0.03 K/mm3 (0.00-0.05); IMMATURE GRAN PERCENT AUTO 0.4 % (0.0-0.4); LYMPHOCYTES ABSOLUTE AUTO 2.5 K/mm3 (1.0-4.8); LYMPHOCYTES PERCENT AUTO 29.8 % (24.0-44.0); MEAN CORPUSCULAR HEMOGLOBIN 31.3 pg (28.0-32.0); MEAN CORPUSCULAR HGB CONC 33.4 g/dl (32.0-36.0); MEAN CORPUSCULAR VOLUME 93.5 fl (83.0-99.0); MEAN PLATELET VOLUME 10.2 fl (9.4-12.3); MONOCYTES ABSOLUTE AUTO 0.7 K/mm3 (0.0-0.8); MONOCYTES PERCENT AUTO 8.7 % (0.0-8.0); NEUTROPHILS ABSOLUTE AUTO 4.8 K/mm3 (1.8-7.7); NEUTROPHILS PERCENT AUTO 57.8 % (41.0-71.0); PLATELET COUNT,PLT 187 K/mm3 (150-400); RED BLOOD CELL COUNT 4.03 M/mm3 (4.10-5.30); WHITE BLOOD CELL COUNT,WBC 8.38 K/mm3 (3.9-11.3)
[2023-03-17] MEDS ORDERED: hydrALAZINE 20 MG/ML SDV IVPUSH ONE (21:56)
[2023-03-17] MEDS ORDERED: amLODIPine 5 MG Tab PO ONE (21:57)
[2023-03-17 22:26] LABS: A/G RATIO 0.9 (1-2); ALBUMIN 3.1 g/dl (3.4-5.0); ANION GAP 9.1 (5-15); BILIRUBIN TOTAL 0.4 mg/dL (0.2-1.0); BUN/CREATININE RATIO 18.9 (14-18); CREATININE 0.9 mg/dL (0.55-1.02); EST CRCL DRUG DOSING (CG) 34.83 mL/min; POTASSIUM,K 4.1 mEq/L (3.5-5.1); PROTEIN TOTAL,TP 6.6 g/dl (6.4-8.2)
== END 2023-03-17 23:30 | disposition home or self-care (01) ==
LOC: JD.ED 20:55
DX: I10 Essential (primary) hypertension (principal); E78.00 Pure hypercholesterolemia, unspecified; E03.9 Hypothyroidism, unspecified; M19.90 Unspecified osteoarthritis, unspecified site; Z79.82 Long term (current) use of aspirin; Z79.899 Other long term (current) drug therapy; Z88.1 Allergy status to other antibiotic agents; Z88.2 Allergy status to sulfonamides
CPT/HCPCS: 36415; 80053; 85025; 96374; 99283; A9270; J0360; 99284

== ENCOUNTER 2023-04-18 17:08 | Emergency (ER) | payer MEDICARE, OTHER, MEDICAID ==
[2023-04-18 18:32] LABS: HEMATOCRIT 40.6 % (37.0-47.0); HEMOGLOBIN 13.7 gm/dl (12.0-16.0); MEAN CORPUSCULAR HEMOGLOBIN 31.4 pg (28.0-32.0); MEAN CORPUSCULAR HGB CONC 33.7 g/dl (32.0-36.0); MEAN CORPUSCULAR VOLUME 93.1 fl (83.0-99.0); MEAN PLATELET VOLUME 10.3 fl (9.4-12.3); PLATELET COUNT,PLT 183 K/mm3 (150-400); RED BLOOD CELL COUNT 4.36 M/mm3 (4.10-5.30); WHITE BLOOD CELL COUNT,WBC 9.35 K/mm3 (3.9-11.3)
[2023-04-18 18:52] LABS: INR 1.02; PROTHROMBIN TIME 10.9 SECONDS (9.7-12.0)
[2023-04-18 19:03] LABS: APPEARANCE,URINE CLEAR (Clear); BILIRUBIN,URINE NEGATIVE (Negative); COLOR,URINE YELLOW (Yellow); GLUCOSE,URINE NEGATIVE (Negative); KETONES,URINE 1+ (Negative); LEUKOCYTE ESTERASE,URINE 1+ (Negative); NITRITE,URINE NEGATIVE (Negative); OCCULT BLOOD,URINE TRACE-LYSED (Negative); PH,URINE 7.5 (5.0-8.0); PROTEIN,URINE 1+ (Negative); UROBILINOGEN,URINE 0.2 (0.2-1.0)
[2023-04-18 19:06] LABS: A/G RATIO 0.9 (1-2); ALANINE AMINOTRANSFERASE,ALT 12 U/L (14-59); ALBUMIN 3.4 g/dl (3.4-5.0); ALKALINE PHOSPHATASE 56 U/L (46-116); ANION GAP 15.1 (5-15); ASPARTATE AMNIOTRANSFERASE,AST 23 U/L (15-37); BILIRUBIN TOTAL 0.6 mg/dL (0.2-1.0); BLOOD UREA NITROGEN,BUN 10 mg/dL (7-18); BUN/CREATININE RATIO 11.1 (14-18); C-REACTIVE PROTEIN <0.2 mg/dL (<1.0); CALCIUM 9.1 mg/dL (8.5-10.1); CARBON DIOXIDE,CO2 25 mEq/L (21-32); CHLORIDE,CL 103 mEq/L (98-107); CREATININE 0.9 mg/dL (0.55-1.02); EST CRCL DRUG DOSING (CG) 34.83 mL/min; ESTIMATED GFR 62 mL/min (>60); GLUCOSE RANDOM 123 mg/dL (70-99); POTASSIUM,K 4.1 mEq/L (3.5-5.1); PROTEIN TOTAL,TP 7.2 g/dl (6.4-8.2); SODIUM,NA 139 mEq/L (136-145)
[2023-04-18 19:23] LABS: BAND PERCENT MAN 0 % (0-10); BASOPHILS PERCENT MAN 0 (0.1-1.2); EOSINOPHILS PERCENT MAN 0 % (0.7-5.8); LYMPHOCYTES % ATYPICAL MANUAL 0 %; LYMPHOCYTES PERCENT MAN 13 % (20-40); MONOCYTES PERCENT MAN 7 % (2-10); PLATELET COUNT ESTIMATE ADEQUATE
[2023-04-18 19:28] LABS: RBC,URINE 0-5 /hpf (0-5); WBC,URINE 40-50 /hpf (0-5)
[2023-04-18 19:29] LABS: BACTERIA,URINE FEW /hpf (FEW); MUCUS,URINE FEW /hpf (FEW); SQUAMOUS EPITHELIAL CELLS,UR 0-5 /hpf (0-5); WBC CLUMPS,URINE FEW /hpf (NOT SEEN)
[2023-04-18 19:37] LABS: CORONAVIRUS COVID-19 NAA NEGATIVE (NEGATIVE); INFLUENZA A NAA NEGATIVE (NEGATIVE); RESPIRATORY SYNCYTIAL VIR NAA NEGATIVE (NEGATIVE)
[2023-04-18] MEDS ORDERED: Nitrofurantoin Monohydrate/Macrocrystalline 100 MG Cap PO ONE (19:37)
== END 2023-04-18 20:24 | disposition home or self-care (01) ==
LOC: JD.ED 17:08
DX: N30.00 Acute cystitis without hematuria (principal); I10 Essential (primary) hypertension; E78.00 Pure hypercholesterolemia, unspecified; E03.9 Hypothyroidism, unspecified; M19.90 Unspecified osteoarthritis, unspecified site; Z88.0 Allergy status to penicillin; Z88.2 Allergy status to sulfonamides; Z79.899 Other long term (current) drug therapy; Z79.82 Long term (current) use of aspirin; Z20.822 Contact with and (suspected) exposure to COVID-19
CPT/HCPCS: 0241U; 36415; 51701; 71045; 80053; 81001; 83605; 85007; 85027; 85610; 86140; 87040; 87086; 99284

== ENCOUNTER 2023-09-06 01:07 | Inpatient (IN) | payer MEDICARE, MEDICAID ==
[2023-09-06 01:28] LABS: HEMATOCRIT 41.1 % (37.0-47.0); HEMOGLOBIN 13.6 gm/dl (12.0-16.0); MEAN CORPUSCULAR HEMOGLOBIN 30.4 pg (28.0-32.0); MEAN CORPUSCULAR HGB CONC 33.1 g/dl (32.0-36.0); MEAN CORPUSCULAR VOLUME 91.7 fl (83.0-99.0); MEAN PLATELET VOLUME 9.6 fl (9.4-12.3); PLATELET COUNT,PLT 500 K/mm3 (150-400); RED BLOOD CELL COUNT 4.48 M/mm3 (4.10-5.30); WHITE BLOOD CELL COUNT,WBC 19.07 K/mm3 (3.9-11.3)
[2023-09-06] MEDS: Sodium Chloride 0.9% 1,000 ML IV ONE (01:33)
[2023-09-06] MEDS: Diltiazem 25 MG/5 ML SDV IVPUSH ONE ×2 (01:35→01:49)
[2023-09-06] MEDS: Sodium Chloride 0.9% 10 ML Syringe FLUSH PRN (01:36)
[2023-09-06] MEDS: Levofloxacin/Dextrose 5%-Water 500 MG in Premix Bag 1 BAG IV ONE (01:45)
[2023-09-06 01:49] LABS: INR 1.1; PROTHROMBIN TIME 11.7 SECONDS (9.7-12.0)
[2023-09-06 01:53] LABS: LACTIC ACID 1.4 mmol/L (0.4-2.0)
[2023-09-06 01:59] LABS: A/G RATIO 0.5 (1-2); ALANINE AMINOTRANSFERASE,ALT 49 U/L (14-59); ALBUMIN 2.5 g/dl (3.4-5.0); ALKALINE PHOSPHATASE 91 U/L (46-116); ANION GAP 15.7 (5-15); ASPARTATE AMNIOTRANSFERASE,AST 44 U/L (15-37); BILIRUBIN TOTAL 0.4 mg/dL (0.2-1.0); BLOOD UREA NITROGEN,BUN 14 mg/dL (7-18); C-REACTIVE PROTEIN 10.85 mg/dL (<0.30); CALCIUM 8.8 mg/dL (8.5-10.1); CARBON DIOXIDE,CO2 25 mEq/L (21-32); CHLORIDE,CL 101 mEq/L (98-107); ESTIMATED GFR 54 mL/min (>60); GLUCOSE RANDOM 189 mg/dL (70-99); LIPASE 23 U/L (16-77); POTASSIUM,K 4.7 mEq/L (3.5-5.1); PROTEIN TOTAL,TP 7.6 g/dl (6.4-8.2); SODIUM,NA 137 mEq/L (136-145); TROPONIN I HIGH SENSITIVITY 26 pg/mL (<=51)
[2023-09-06 02:04] LABS: BAND PERCENT MAN 0 % (0-10); BASOPHILS PERCENT MAN 0 (0.1-1.2); EOSINOPHILS PERCENT MAN 0 % (0.7-5.8); LYMPHOCYTES % ATYPICAL MANUAL 0 %; LYMPHOCYTES PERCENT MAN 6 % (20-40); MONOCYTES PERCENT MAN 5 % (2-10); MYELOCYTE PERCENT MAN 1
[2023-09-06 02:06] LABS: PLATELET COUNT ESTIMATE INCREASED
[2023-09-06] MEDS: Diltiazem 125 MG in Sodium Chloride 0.9% 100 ML IV SCH (02:15)
[2023-09-06] MEDS ORDERED: Ondansetron 4 MG Tab.DIS PO PRN (03:58)
[2023-09-06] MEDS ORDERED: Ondansetron 4 MG/2 ML SDV IV PRN (03:58)
[2023-09-06] MEDS ORDERED: Diltiazem 125 MG in Sodium Chloride 0.9% 100 ML IV SCH (04:15)
[2023-09-06] MEDS: Heparin Sodium 5,000 Units/ML Vial SUBCUT SCH (05:08)
[2023-09-06] MEDS: Cefepime 2 GM in Sodium Chloride 0.9% 50 ML IV SCH (05:09)
[2023-09-06] MEDS: Diltiazem IR 60 MG Tab PO SCH (05:09)
[2023-09-06 06:43] LABS: ANION GAP 15.7 (5-15); CALCIUM 8.1 mg/dL (8.5-10.1); CREATININE 0.8 mg/dL (0.55-1.02); EST CRCL DRUG DOSING (CG) 38.44 mL/min; POTASSIUM,K 4.7 mEq/L (3.5-5.1)
[2023-09-06 06:45] LABS: BASOPHILS PERCENT AUTO 0.2 % (0.0-1.0); EOSINOPHILS PERCENT AUTO 0.1 % (0.0-6.0); HEMATOCRIT 34.8 % (37.0-47.0); IMMATURE GRAN ABSOLUTE AUTO 0.12 K/mm3 (0.00-0.05); IMMATURE GRAN PERCENT AUTO 0.7 % (0.0-0.4); LYMPHOCYTES ABSOLUTE AUTO 0.9 K/mm3 (1.0-4.8); LYMPHOCYTES PERCENT AUTO 5.4 % (24.0-44.0); MEAN CORPUSCULAR HEMOGLOBIN 30.4 pg (28.0-32.0); MEAN CORPUSCULAR VOLUME 92.1 fl (83.0-99.0); MEAN PLATELET VOLUME 10.2 fl (9.4-12.3); MONOCYTES ABSOLUTE AUTO 0.8 K/mm3 (0.0-0.8); MONOCYTES PERCENT AUTO 4.8 % (0.0-8.0); NEUTROPHILS ABSOLUTE AUTO 15.3 K/mm3 (1.8-7.7); NEUTROPHILS PERCENT AUTO 88.8 % (41.0-71.0); RED BLOOD CELL COUNT 3.78 M/mm3 (4.10-5.30); WHITE BLOOD CELL COUNT,WBC 17.25 K/mm3 (3.9-11.3)
[2023-09-06 07:40] LABS: HEMOGLOBIN 11.5 gm/dl (12.0-16.0); PLATELET COUNT,PLT 400 K/mm3 (150-400)
[2023-09-06] MEDS: Furosemide 20 MG/2 ML VIAL IVPUSH ONE (07:46)
[2023-09-06] MEDS: Carboxymethylcellulose Sodium 1% Ophth Gel 15 ML Bottle EYEBOTH PRN (15:20)
[2023-09-06] MEDS: Albuterol/Ipratropium 3.0-0.5 MG/3 ML Neb Soln NEB PRN (23:31)
[2023-09-07] MEDS: LORazepam 2 MG/ML SDV IVPUSH PRN (00:06)
[2023-09-07] MEDS: Acetaminophen 325 MG Tab PO PRN (00:06)
[2023-09-07 05:24] LABS: BASOPHILS PERCENT AUTO 0.2 % (0.0-1.0); HEMATOCRIT 34.6 % (37.0-47.0); HEMOGLOBIN 11.6 gm/dl (12.0-16.0); IMMATURE GRAN ABSOLUTE AUTO 0.21 K/mm3 (0.00-0.05); LYMPHOCYTES PERCENT AUTO 4.9 % (24.0-44.0); MEAN CORPUSCULAR HGB CONC 33.5 g/dl (32.0-36.0); MEAN CORPUSCULAR VOLUME 89.4 fl (83.0-99.0); MEAN PLATELET VOLUME 9.9 fl (9.4-12.3); MONOCYTES ABSOLUTE AUTO 1.4 K/mm3 (0.0-0.8); MONOCYTES PERCENT AUTO 6.9 % (0.0-8.0); NEUTROPHILS ABSOLUTE AUTO 17.9 K/mm3 (1.8-7.7); PLATELET COUNT,PLT 436 K/mm3 (150-400); RED BLOOD CELL COUNT 3.87 M/mm3 (4.10-5.30); WHITE BLOOD CELL COUNT,WBC 20.64 K/mm3 (3.9-11.3)
[2023-09-07 05:40] LABS: ANION GAP 17.5 (5-15); CALCIUM 8.3 mg/dL (8.5-10.1); EST CRCL DRUG DOSING (CG) 30.76 mL/min; POTASSIUM,K 4.5 mEq/L (3.5-5.1)
[2023-09-07] MEDS: Docusate Sodium 100 MG Cap PO PRN (11:24)
[2023-09-07] MEDS: Cefepime 2 GM in Sodium Chloride 0.9% 50 ML IV SCH (16:14)
[2023-09-08 05:29] LABS: BASOPHILS ABSOLUTE AUTO 0.1 K/mm3 (0.0-0.2); BASOPHILS PERCENT AUTO 0.3 % (0.0-1.0); EOSINOPHILS ABSOLUTE AUTO 0.1 K/mm3 (0.0-0.4); EOSINOPHILS PERCENT AUTO 0.4 % (0.0-6.0); HEMATOCRIT 36.7 % (37.0-47.0); HEMOGLOBIN 12.3 gm/dl (12.0-16.0); IMMATURE GRAN ABSOLUTE AUTO 0.15 K/mm3 (0.00-0.05); IMMATURE GRAN PERCENT AUTO 0.8 % (0.0-0.4); LYMPHOCYTES ABSOLUTE AUTO 1.9 K/mm3 (1.0-4.8); LYMPHOCYTES PERCENT AUTO 9.8 % (24.0-44.0); MEAN CORPUSCULAR HEMOGLOBIN 30.3 pg (28.0-32.0); MEAN CORPUSCULAR HGB CONC 33.5 g/dl (32.0-36.0); MEAN CORPUSCULAR VOLUME 90.4 fl (83.0-99.0); MEAN PLATELET VOLUME 10.2 fl (9.4-12.3); MONOCYTES ABSOLUTE AUTO 1.2 K/mm3 (0.0-0.8); MONOCYTES PERCENT AUTO 6.2 % (0.0-8.0); NEUTROPHILS ABSOLUTE AUTO 16.1 K/mm3 (1.8-7.7); NEUTROPHILS PERCENT AUTO 82.5 % (41.0-71.0); PLATELET COUNT,PLT 486 K/mm3 (150-400); RED BLOOD CELL COUNT 4.06 M/mm3 (4.10-5.30); WHITE BLOOD CELL COUNT,WBC 19.51 K/mm3 (3.9-11.3)
[2023-09-08 05:44] LABS: ANION GAP 15.5 (5-15); CALCIUM 8.7 mg/dL (8.5-10.1); EST CRCL DRUG DOSING (CG) 30.76 mL/min; POTASSIUM,K 4.5 mEq/L (3.5-5.1); VANCOMYCIN RANDOM 7.9 ug/mL
[2023-09-08] MEDS: atorvaSTATin 20 MG Tab PO SCH (10:11)
[2023-09-08] MEDS: Polyethylene Glycol 3350 Powder 17 GM Packet PO PRN (10:11)
[2023-09-08] MEDS: traZODone 50 MG Tab PO PRN (23:13)
[2023-09-09] MEDS: Levothyroxine 25 MCG Tab PO SCH (05:28)
[2023-09-09 05:32] LABS: BASOPHILS PERCENT AUTO 0.2 % (0.0-1.0); EOSINOPHILS ABSOLUTE AUTO 0.1 K/mm3 (0.0-0.4); EOSINOPHILS PERCENT AUTO 0.3 % (0.0-6.0); HEMATOCRIT 33.4 % (37.0-47.0); HEMOGLOBIN 11.3 gm/dl (12.0-16.0); IMMATURE GRAN PERCENT AUTO 0.6 % (0.0-0.4); MEAN CORPUSCULAR HEMOGLOBIN 30.5 pg (28.0-32.0); MEAN CORPUSCULAR HGB CONC 33.8 g/dl (32.0-36.0); MEAN CORPUSCULAR VOLUME 90.3 fl (83.0-99.0); MEAN PLATELET VOLUME 9.9 fl (9.4-12.3); MONOCYTES ABSOLUTE AUTO 0.9 K/mm3 (0.0-0.8); MONOCYTES PERCENT AUTO 5.6 % (0.0-8.0); NEUTROPHILS ABSOLUTE AUTO 14.8 K/mm3 (1.8-7.7); NEUTROPHILS PERCENT AUTO 87.3 % (41.0-71.0); PLATELET COUNT,PLT 418 K/mm3 (150-400); WHITE BLOOD CELL COUNT,WBC 16.92 K/mm3 (3.9-11.3)
[2023-09-09 05:54] LABS: ANION GAP 11.1 (5-15); BUN/CREATININE RATIO 26.7 (14-18); CALCIUM 8.4 mg/dL (8.5-10.1); CREATININE 0.9 mg/dL (0.55-1.02); EST CRCL DRUG DOSING (CG) 34.17 mL/min; POTASSIUM,K 5.1 mEq/L (3.5-5.1)
[2023-09-09] MEDS: Diltiazem 240 MG Cap.ER PO SCH (08:46)
[2023-09-09] MEDS ORDERED: Diltiazem 240 MG Cap.ER PO SCH (09:00)
[2023-09-09] MEDS: Morphine 2 MG/ML SYRINGE IVPUSH PRN (14:23)
[2023-09-09] MEDS: LORazepam 2 MG/ML SDV IVPUSH PRN (14:24)
[2023-09-10] MEDS ORDERED: Morphine 4 MG/ML Syringe IVPUSH PRN (04:04)
[2023-09-10] MEDS ORDERED: LORazepam 2 MG/ML SDV IVPUSH PRN (04:10)
== END 2023-09-10 04:30 | disposition expired | DRG 871 ==
LOC: JD.ED 01:07 → JD.ICU 03:58
PROVIDERS: ADMIT Hospitalist; ATTEND Hospitalist
DX: A41.9 Sepsis, unspecified organism (principal); J18.9 Pneumonia, unspecified organism; R09.02 Hypoxemia; J96.01 Acute respiratory failure with hypoxia; J81.0 Acute pulmonary edema; I48.91 Unspecified atrial fibrillation; Z66 Do not resuscitate; Z88.1 Allergy status to other antibiotic agents; Z51.5 Encounter for palliative care; H91.90 Unspecified hearing loss, unspecified ear; E78.00 Pure hypercholesterolemia, unspecified; I10 Essential (primary) hypertension; M19.90 Unspecified osteoarthritis, unspecified site; E03.9 Hypothyroidism, unspecified; I35.0 Nonrheumatic aortic (valve) stenosis; Z88.0 Allergy status to penicillin; Z88.2 Allergy status to sulfonamides; Z79.2 Long term (current) use of antibiotics; Z79.899 Other long term (current) drug therapy; Z87.440 Personal history of urinary (tract) infections; Z85.3 Personal history of malignant neoplasm of breast; Z90.89 Acquired absence of other organs; Z98.49 Cataract extraction status, unspecified eye; Z98.890 Other specified postprocedural states; Z90.710 Acquired absence of both cervix and uterus; Z90.10 Acquired absence of unspecified breast and nipple; Z90.09 Acquired absence of other part of head and neck
CPT/HCPCS: 36415; 71045; 80053; 83605; 83690; 83880; 84484; 85007; 85027; 85610; 86140; 87040 ×2; 96365; 96367; 96376; 99285; J1956; J3490 ×4; J7030; 80048; 80202; 85025; 87641; 92610-GN; 93010; 94640; 94667; 94668; 97162-GP; A9270-GY; J0692; J1644; J1940; J2060; J2270; J3370; J7050; J7620-GY